=== PATIENT | female | born 1930 | race Caucasian/White ===

== ENCOUNTER 2021-03-04 10:27 | Outpatient (CLI) | payer MEDICARE, OTHER | END 2021-03-04 10:28 | disposition home or self-care (01) | LOC: CSHWCC 10:27 | PROVIDERS: ATTEND Nurse Practitioner Family | DX: I87.312 Chronic venous hypertension (idiopathic) with ulcer of left lower extremity (principal); L97.222 Non-pressure chronic ulcer of left calf with fat layer exposed; L97.922 Non-pressure chronic ulcer of unspecified part of left lower leg with fat layer exposed; R60.0 Localized edema; F32.9 Major depressive disorder, single episode, unspecified; I10 Essential (primary) hypertension; I48.21 Permanent atrial fibrillation; I87.2 Venous insufficiency (chronic) (peripheral); L30.8 Other specified dermatitis; L59.8 Other specified disorders of the skin and subcutaneous tissue related to radiation; W22.03XD Walked into furniture, subsequent encounter; Z85.3 Personal history of malignant neoplasm of breast; Z85.828 Personal history of other malignant neoplasm of skin | CPT/HCPCS: 11042; 99213; G0463 ==

== ENCOUNTER 2021-03-18 08:41 | Outpatient (CLI) | payer MEDICARE, OTHER | END 2021-03-18 08:42 | disposition home or self-care (01) | LOC: CSHWCC 08:41 | PROVIDERS: ATTEND Nurse Practitioner Family | DX: I87.312 Chronic venous hypertension (idiopathic) with ulcer of left lower extremity (principal); L97.922 Non-pressure chronic ulcer of unspecified part of left lower leg with fat layer exposed; L97.222 Non-pressure chronic ulcer of left calf with fat layer exposed; R60.0 Localized edema; F32.9 Major depressive disorder, single episode, unspecified; I10 Essential (primary) hypertension; I48.21 Permanent atrial fibrillation; I87.2 Venous insufficiency (chronic) (peripheral); L30.8 Other specified dermatitis; L59.8 Other specified disorders of the skin and subcutaneous tissue related to radiation; W22.03XD Walked into furniture, subsequent encounter; Z85.3 Personal history of malignant neoplasm of breast; Z85.828 Personal history of other malignant neoplasm of skin | CPT/HCPCS: 11042; 99213; G0463 ==

== ENCOUNTER 2021-04-08 09:37 | Outpatient (CLI) | payer MEDICARE, OTHER | END 2021-04-08 09:38 | disposition home or self-care (01) | LOC: CSHWCC 09:37 | PROVIDERS: ATTEND Nurse Practitioner Family | DX: I87.2 Venous insufficiency (chronic) (peripheral) (principal); T66.XXXD Radiation sickness, unspecified, subsequent encounter; L97.922 Non-pressure chronic ulcer of unspecified part of left lower leg with fat layer exposed; L97.909 Non-pressure chronic ulcer of unspecified part of unspecified lower leg with unspecified severity; I48.21 Permanent atrial fibrillation; L30.8 Other specified dermatitis; F32.9 Major depressive disorder, single episode, unspecified; I10 Essential (primary) hypertension; R60.0 Localized edema; W22.03XS Walked into furniture, sequela; Z85.3 Personal history of malignant neoplasm of breast; Z85.828 Personal history of other malignant neoplasm of skin ==

== ENCOUNTER 2021-09-09 10:43 | Outpatient (CLI) | payer MEDICARE, OTHER | END 2021-09-09 10:44 | disposition home or self-care (01) | LOC: CSHWCC 10:43 | PROVIDERS: ATTEND Nurse Practitioner Family | DX: I87.332 Chronic venous hypertension (idiopathic) with ulcer and inflammation of left lower extremity (principal); I87.311 Chronic venous hypertension (idiopathic) with ulcer of right lower extremity; L97.212 Non-pressure chronic ulcer of right calf with fat layer exposed; L97.222 Non-pressure chronic ulcer of left calf with fat layer exposed; R60.0 Localized edema; F32.9 Major depressive disorder, single episode, unspecified; I48.21 Permanent atrial fibrillation; L97.909 Non-pressure chronic ulcer of unspecified part of unspecified lower leg with unspecified severity; I87.2 Venous insufficiency (chronic) (peripheral); L30.8 Other specified dermatitis; L59.8 Other specified disorders of the skin and subcutaneous tissue related to radiation; W22.03XS Walked into furniture, sequela; Z85.3 Personal history of malignant neoplasm of breast; Z85.828 Personal history of other malignant neoplasm of skin | CPT/HCPCS: 11042 ==

== ENCOUNTER 2021-09-23 09:26 | Outpatient (CLI) | payer MEDICARE, OTHER | END 2021-09-23 09:27 | disposition home or self-care (01) | LOC: CSHWCC 09:26 | PROVIDERS: ATTEND Nurse Practitioner Family | DX: I87.332 Chronic venous hypertension (idiopathic) with ulcer and inflammation of left lower extremity (principal); I87.311 Chronic venous hypertension (idiopathic) with ulcer of right lower extremity; I87.2 Venous insufficiency (chronic) (peripheral); L97.222 Non-pressure chronic ulcer of left calf with fat layer exposed; L97.212 Non-pressure chronic ulcer of right calf with fat layer exposed; L59.8 Other specified disorders of the skin and subcutaneous tissue related to radiation; R60.0 Localized edema; I48.21 Permanent atrial fibrillation; F32.9 Major depressive disorder, single episode, unspecified; E78.2 Mixed hyperlipidemia; L30.8 Other specified dermatitis; W22.03XS Walked into furniture, sequela; Z85.3 Personal history of malignant neoplasm of breast; Z85.828 Personal history of other malignant neoplasm of skin | CPT/HCPCS: 87070; 87077; 87186; 87205 ==

== ENCOUNTER 2021-10-07 08:40 | Outpatient (CLI) | payer MEDICARE, OTHER | END 2021-10-07 08:41 | disposition home or self-care (01) | LOC: CSHWCC 08:40 | PROVIDERS: ATTEND Nurse Practitioner Family | DX: I87.332 Chronic venous hypertension (idiopathic) with ulcer and inflammation of left lower extremity (principal); I87.311 Chronic venous hypertension (idiopathic) with ulcer of right lower extremity; L97.212 Non-pressure chronic ulcer of right calf with fat layer exposed; L97.222 Non-pressure chronic ulcer of left calf with fat layer exposed; L97.909 Non-pressure chronic ulcer of unspecified part of unspecified lower leg with unspecified severity; R60.0 Localized edema; E78.2 Mixed hyperlipidemia; F32.9 Major depressive disorder, single episode, unspecified; I48.21 Permanent atrial fibrillation; L30.8 Other specified dermatitis; L59.8 Other specified disorders of the skin and subcutaneous tissue related to radiation; I10 Essential (primary) hypertension; W22.03XS Walked into furniture, sequela; Z85.3 Personal history of malignant neoplasm of breast; Z85.828 Personal history of other malignant neoplasm of skin | CPT/HCPCS: 29581; 99212; G0463 ==

== ENCOUNTER 2021-10-21 09:46 | Outpatient (CLI) | payer MEDICARE, OTHER | END 2021-10-21 09:47 | disposition home or self-care (01) | LOC: CSHWCC 09:46 | PROVIDERS: ATTEND Nurse Practitioner Family | DX: I87.332 Chronic venous hypertension (idiopathic) with ulcer and inflammation of left lower extremity (principal); L97.212 Non-pressure chronic ulcer of right calf with fat layer exposed; L97.222 Non-pressure chronic ulcer of left calf with fat layer exposed; R60.0 Localized edema; E78.2 Mixed hyperlipidemia; F32.9 Major depressive disorder, single episode, unspecified; I48.21 Permanent atrial fibrillation; I87.2 Venous insufficiency (chronic) (peripheral); L30.8 Other specified dermatitis; L59.8 Other specified disorders of the skin and subcutaneous tissue related to radiation; W22.03XS Walked into furniture, sequela; Z85.3 Personal history of malignant neoplasm of breast; Z85.828 Personal history of other malignant neoplasm of skin | CPT/HCPCS: 29581; 97139; G0463; 99213 ==

== ENCOUNTER 2021-11-04 10:18 | Outpatient (CLI) | payer MEDICARE, OTHER | END 2021-11-04 10:19 | disposition home or self-care (01) | LOC: CSHWCC 10:18 | PROVIDERS: ATTEND Nurse Practitioner Family | DX: I87.332 Chronic venous hypertension (idiopathic) with ulcer and inflammation of left lower extremity (principal); I87.311 Chronic venous hypertension (idiopathic) with ulcer of right lower extremity; I87.2 Venous insufficiency (chronic) (peripheral); L97.212 Non-pressure chronic ulcer of right calf with fat layer exposed; L97.909 Non-pressure chronic ulcer of unspecified part of unspecified lower leg with unspecified severity; L97.222 Non-pressure chronic ulcer of left calf with fat layer exposed; I48.21 Permanent atrial fibrillation; F32.9 Major depressive disorder, single episode, unspecified; L30.8 Other specified dermatitis; E78.2 Mixed hyperlipidemia; L59.8 Other specified disorders of the skin and subcutaneous tissue related to radiation; R60.0 Localized edema; Z85.3 Personal history of malignant neoplasm of breast; Z85.828 Personal history of other malignant neoplasm of skin; W22.03XD Walked into furniture, subsequent encounter ==

== ENCOUNTER 2021-11-25 11:04 | Outpatient (CLI) | payer MEDICARE, OTHER | END 2021-11-25 11:05 | disposition home or self-care (01) | LOC: CSHWCC 11:04 | PROVIDERS: ATTEND Nurse Practitioner Family | DX: I87.332 Chronic venous hypertension (idiopathic) with ulcer and inflammation of left lower extremity (principal); I87.311 Chronic venous hypertension (idiopathic) with ulcer of right lower extremity; I87.2 Venous insufficiency (chronic) (peripheral); L97.212 Non-pressure chronic ulcer of right calf with fat layer exposed; L97.222 Non-pressure chronic ulcer of left calf with fat layer exposed; L97.909 Non-pressure chronic ulcer of unspecified part of unspecified lower leg with unspecified severity; R60.0 Localized edema; I48.21 Permanent atrial fibrillation; F32.9 Major depressive disorder, single episode, unspecified; E78.2 Mixed hyperlipidemia; L30.8 Other specified dermatitis; L59.8 Other specified disorders of the skin and subcutaneous tissue related to radiation; W22.03XD Walked into furniture, subsequent encounter; Z85.3 Personal history of malignant neoplasm of breast; Z85.828 Personal history of other malignant neoplasm of skin ==

== ENCOUNTER 2021-12-16 09:55 | Outpatient (CLI) | payer MEDICARE | END 2021-12-16 09:56 | disposition home or self-care (01) | LOC: CSHWCC 09:55 | PROVIDERS: ATTEND Nurse Practitioner Family | DX: L97.222 Non-pressure chronic ulcer of left calf with fat layer exposed (principal); R60.0 Localized edema | CPT/HCPCS: 88305 ==

== ENCOUNTER 2021-12-30 10:51 | Outpatient (CLI) | payer MEDICARE | END 2021-12-30 10:52 | disposition home or self-care (01) | LOC: CSHWCC 10:51 | PROVIDERS: ATTEND Nurse Practitioner Family | DX: L97.222 Non-pressure chronic ulcer of left calf with fat layer exposed (principal); R60.0 Localized edema | CPT/HCPCS: 29581 ==

== ENCOUNTER 2022-01-13 10:43 | Outpatient (CLI) | payer MEDICARE, OTHER | END 2022-01-13 10:44 | disposition home or self-care (01) | LOC: CSHWCC 10:43 | PROVIDERS: ATTEND Nurse Practitioner Family | DX: I87.2 Venous insufficiency (chronic) (peripheral) (principal); L97.922 Non-pressure chronic ulcer of unspecified part of left lower leg with fat layer exposed; R60.0 Localized edema; L59.8 Other specified disorders of the skin and subcutaneous tissue related to radiation; L30.8 Other specified dermatitis; I48.21 Permanent atrial fibrillation; F32.9 Major depressive disorder, single episode, unspecified; I10 Essential (primary) hypertension; W22.03XS Walked into furniture, sequela; Z85.3 Personal history of malignant neoplasm of breast; Z85.828 Personal history of other malignant neoplasm of skin | CPT/HCPCS: 97139; G0463; 99213 ==